=== PATIENT | male | born 1965 | race Caucasian/White ===

== ENCOUNTER 2018-08-05 19:18 | Emergency (ER) | payer BC ==
[~2018-08-05] VITALS: Ht 167.6 cm; Wt 81.8 kg
[2018-08-05 19:28] VITALS: BP 132/88
[2018-08-05] MEDS ORDERED: LIDOcaine 1% w/epiNEPHrine 1:200,000 30ml vial IM ONE (21:00)
== END 2018-08-05 21:17 | disposition home or self-care (01) ==
LOC: ER 19:19
DX: S61.011A Laceration without foreign body of right thumb without damage to nail, initial encounter (principal); W45.8XXA Other foreign body or object entering through skin, initial encounter; Y93.89 Activity, other specified; Y92.89 Other specified places as the place of occurrence of the external cause; Y99.8 Other external cause status
CPT/HCPCS: 12001; 99283; J3490

== ENCOUNTER 2021-12-04 19:14 | Emergency (ER) | payer BC ==
[~2021-12-04] VITALS: Ht 167.6 cm; Wt 77.3 kg
[~2021-12-04 19:14] MED LIST: LIDOcaine 1% 30ml preserv. free vial ONE
[2021-12-04 19:25] VITALS: BP 144/93
--- NOTE | 2021-12-04 19:58 | NUR ---
WOUND CLEANED AND IRR WITH 200ML NACL
[2021-12-04] MEDS ORDERED: bacitracin 15gm ointment TP ONE (20:30)
== END 2021-12-04 20:47 | disposition home or self-care (01) ==
LOC: ER 19:14
DX: S01.82XA Laceration with foreign body of other part of head, initial encounter (principal); I10 Essential (primary) hypertension; W22.8XXA Striking against or struck by other objects, initial encounter; Y93.89 Activity, other specified; Y92.89 Other specified places as the place of occurrence of the external cause; Y99.8 Other external cause status
CPT/HCPCS: 12051; 71045; 99284; J3490